=== PATIENT | male | born 1990 | race Caucasian/White ===

== ENCOUNTER 2023-12-10 12:15 | Outpatient (CLI) | payer OTHER ==
--- NOTE | 2023-12-10 16:54 | XRAY Report ---
PROCEDURE: Lumbar Spine 2-3V INDICATIONS: STRAIN OF MUSCLE, FASCIA AND TENDON OF LOWER BACK TECHNIQUE: 3 views of the lumbar spine were acquired. COMPARISON: None. FINDINGS: Surgical change: None. Bones: 5 [id number] vertebrae are present. There is normal bony alignment. No vertebral body co mpression fractures. No suspicious bony lesions. Soft tissues: Overlying bowel gas pattern is normal. No suspicious soft tissue calcifications. Surg ical sutures in the right lower quadrant. IMPRESSION: No fracture. No acute osseous lesion. If there is continued clinical concern for pathology, then CT o r MRI should be considered for further evaluation. Reviewed by: Francisca Barney MD, PhD on 12/10/2023 4:52 PM PDT Approved by: Francisca Barney MD, PhD on 12/10/2023 4:52 PM PDT Station ID: [id number]
== END 2023-12-10 12:30 | disposition home or self-care (01) ==
LOC: DI.N 12:15
PROVIDERS: ATTEND Family Medicine
DX: S39.012A Strain of muscle, fascia and tendon of lower back, initial encounter (principal)